=== PATIENT | female | born 1955 | race Caucasian/White ===

== ENCOUNTER 2019-03-21 14:18 | Observation (INO) | payer OTHER, SELFPAY ==
[2019-03-21] VITALS (14 sets, daily range): BP systolic 119–157; BP diastolic 62–91; PULSE 69–96; RESP 11–20; TEMP 36.2–37.3; O2SAT 93–100; BMI 27.4
--- NOTE | 2019-03-21 | PATH_ITS ---
[facility] Accession Number: [id number] . 01 Material submitted: . appendix - APPENDIX . 02 Diagnosis: Appendix, Laparoscopic Appendectomy: Acute appendicitis and serositis. MRV 03/24/2019 1025 Local . 02 Electronically signed: . Poppy Lawson MD, Pathologist NPI- [id number] . 01 Gross description: . Received in formalin, labeled appendix, is an intact appendix (length-5.6 cm, diameter-1.1 cm) with baldwin-mccracken smooth shiny serosa and attached mesoappendix (up to 2.1 cm in depth). The resection margin is received stapled. The lumen contains brown solid soft material. The wall is up to 0.3 cm thick. No nodules, masses or lesions are identified. The resection margin is inked black. Section code: (A1) resection margin en face and three additional in store marketing representative serial sections; (A2) one-half of the bivalved tip. ([id number]) /MRV 03/23/2019 1209 Local . 02 Pathologist provided ICD-10: K35.80 . 02 CPT . 817166 Specimen Comment: A duplicate report has been generated due to demographic updates. Performed at: 01 [facility] [address] [facility] [place], [place], [place] [id number] MD Yunior Portillo MD Phone: [phone] Performed at: 02 [facility] [address] [place], [place] [id number] MD Roula Miller MD Phone: [phone]
[2019-03-21 16:06] LABS: Add Manual Diff / Slide Review NO; Basophils Absolute Auto 100 /uL (0-100); Basophils Percent Auto 1.1 % (0-2); Eosinophils Absolute Auto 200 /uL (0-450); Hematocrit 41.1 % (36-46); Hemoglobin 13.8 g/dL (12.0-16.0); Lymphocytes Absolute Auto 2900 /uL (1100-4500); Lymphocytes Percent Auto 36.8 % (25-40); Mean Corpuscular HGB Conc 33.7 % (30-36); Mean Corpuscular Hemoglobin 30.1 PG (26-34); Mean Corpuscular Volume 89.5 fL (80-100); Monocytes Absolute Auto 500 /uL (0-900); Monocytes Percent Auto 6.5 % (3-14); Neutrophils Absolute Auto 4200 /uL (1500-7000); Neutrophils Percent Auto 53.6 % (50-75); Platelet Count 287 X10^3/uL (150-400); Red Blood Cell Count 4.59 X10^6/uL (4.0-5.2); White Blood Cell Count 7.8 X10^3/uL (4.5-11.0)
[2019-03-21 16:17] LABS: INR 1.1 (0.9-1.3); Prothrombin Time 12.1 SECONDS (10.1-12.7)
[2019-03-21 16:19] LABS: PTT Partial Thromboplastin Tim 35 SECONDS (26.4-36.2)
[2019-03-21 16:21] LABS: Alanine Aminotransferase 36 IU/L (9-52); Albumin 4.4 g/dL (3.5-5.0); Albumin Globulin Ratio 1.4 (1.0-2.8); Alkaline Phosphatase 101 U/L (38-126); Aspartate Aminotransferase 31 IU/L (14-36); BUN Creatinine Ratio 23.3 (6-22); Bilirubin Total 0.4 mg/dL (0.2-1.3); Blood Urea Nitrogen 14 mg/dL (7-17); Calcium 9.4 mg/dL (8.4-10.2); Carbon Dioxide 27 mmol/L (22-32); Chloride 103 mmol/L (98-107); Estimated Glomerular Filt Rate > 60.0 mL/min (>60); Globulin 3.2 g/dL (1.7-4.1); Glucose 87 mg/dL (80-110); HEMOLYSIS < 15 (0-50); Lipase 94 U/L (23-300); Potassium 3.6 mmol/L (3.4-5.1); Sodium 138 mmol/L (137-145); Total Protein 7.6 g/dL (6.3-8.2)
--- NOTE | 2019-03-21 16:26 | DI.CT.S_ITS ---
PROCEDURE: CT ABDOMEN PELVIS W CON INDICATIONS: rlq pain, nausea, fever TECHNIQUE: After the administration of intravenous contrast, 5 mm thick sections acquired from the diaphragm to the symphysis. 5 mm coronal and sagittal reformats were acquired. For radiation dose reduction, the following was used: automated exposure control, adjustment of mA and/or kV according to patient size. COMPARISON: None. FINDINGS: Image quality: Excellent. ABDOMEN: Lung bases: Lung bases are clear. Heart size is normal. Solid organs: Liver is normal in size and enhancement. Gallbladder is normal. Biliary system is non dilated. Pancreas enhances normally. Spleen is normal in size and enhancement. No adrenal nodules. Kidneys demonstrate normal size and enhancement, without hydronephrosis. Peritoneum and bowel: Appendix is distended measuring up to 12 mm in diameter and filled with fluid. There is a appendicolith at the base of the appendix. No free fluid or air. No fluid collections to suggest abscess. There is a moderate amount of stool in colon. Nodes and vessels: No retroperitoneal or mesenteric adenopathy by size criteria. Aorta and inferior vena cava are normal in size. Miscellaneous: No ventral hernias. PELVIS: Genitourinary: Bladder wall thickness is normal. Uterus and ovaries are absent. Miscellaneous: No inguinal hernias or adenopathy. Bones: No suspicious bony lesions. No vertebral body compression fractures. Degenerative disc and facet disease in lumbar spine. Metallic artifact from the left hip prosthesis partially obscure pelvis. IMPRESSION: 1. Acute uncomplicated appendicitis. The result was discussed with Basia Perez. Dictated by: Asya Collazo M.D. on 03/21/2019 at 16:54 Approved by: Asya Collazo M.D. on 03/21/2019 at 16:58
[2019-03-21] MEDS: SODIUM CHLORIDE 0.9% 1,000 ML 1000 ML IV (16:39)
[2019-03-21] MEDS: MORPHINE 4 MG/ML INJ IV ×2 (16:39→17:57)
[2019-03-21] MEDS: ONDANSETRON 4 MG/2 ML INJ IV (16:39)
--- NOTE | 2019-03-21 16:40 | ED.ABDPAIN ---
HPI - Abdominal Pain <DALE Dye - Last Filed: 03/21/19 18:18> General Chief Complaint: Abdominal Pain Stated Complaint: Pain on Lower Right Abd Time Seen by Provider: 03/21/19 15:51 Source: patient Mode of arrival: Ambulatory Limitations: no limitations History of Present Illness HPI narrative: The patient is a 64-year-old female with history of migraines nonsmoker who presents with a chief complaint of right lower quadrant pain. This started as periumbilical pain last night, and localized to right lower quadrant this morning. Also complains of chills and fevers yesterday along with nausea. NPO since 10:00 a.m. when she had some coffee and toast. Denies any chest pain, shortness of breath, dysuria urgency or frequency. Patient denies any abdominal surgery other than ovary removal. She is traveling, tried medical marijuana to feel better with no relief. Last bowel movement today. Related Data Home Medications Medication Instructions Recorded Confirmed celecoxib 200 mg PO DAILY 03/21/19 03/21/19 cholecalciferol (vitamin D3) 2,000 unit PO DAILY 03/21/19 03/21/19 [Vitamin D3] eszopiclone 2 mg PO BEDTIME PRN 03/21/19 03/21/19 magnesium oxide 400 mg PO QPM PRN 03/21/19 03/21/19 phentermine 37.5 mg PO DAILY PRN 03/21/19 03/21/19 zolmitriptan 2.5 mg TRANSLINGUAL PRN PRN MDD 10 03/21/19 03/21/19 mg Previous Rx's Medication Instructions Recorded acetaminophen [Tylenol] 650 mg PO QID PRN #30 cap 03/22/19 tramadol 50 mg PO Q6H PRN #30 tab 03/22/19 Allergies Allergy/AdvReac Type Severity Reaction Status Date / Time meperidine [From Demerol] Allergy Unknown Verified 03/21/19 14:30 Review of Systems <DALE Dye - Last Filed: 03/21/19 18:18> Review of Systems Narrative: GENERAL: Denies chills, fatigue, malaise, fever, sweats. HEENT: Denies sinus pain, ear pain, sore throat, difficulty swallowing, dizziness. RESPIRATORY: Denies dyspnea, cough, wheezing, hemoptysis, sputum. CARDIOVASCULAR: Denies chest pain, palpitations, orthopnea, edema, GASTROINTESTINAL: See HPI : Denies dysuria, frequency, incontinence, hematuria, urinary retention. MUSCULOSKELETAL: denies weakness, joint pain, or bony pain SKIN: Denies rash, skin lesions, or other NEUROLOGIC: Denies weakness, headache, numbness, change in speech, confusion, seizures, incoordination. PSYCHIATRIC: No concerning psychosocial issues. 12 point review of systems is negative except for those stated above PFSH <DALE Dye - Last Filed: 03/21/19 18:18> Medical History Closed left hip fracture (Acute ~12/26/18) H/O: hysterectomy (Acute) Migraine (Acute) Nerve damage of left foot (Acute) Social History Smoking Status: Never smoker Social History household members: spouse Smoking Status: Never smoker Exam <DALE Dye - Last Filed: 03/21/19 18:18> Narrative Exam Narrative: GENERAL: This is a well-nourished, well-developed patient, appears uncomfortable HEAD: Atraumatic. Normocephalic. No temporal or scalp tenderness. EYES: Pupils equal round and reactive. Extraocular motions intact. No scleral icterus. No injection or drainage. ENT: Nose without bleeding, purulent drainage or septal hematoma. Throat without erythema, tonsillar hypertrophy or exudate. Uvula midline. Airway patent. NECK: Trachea midline. No JVD or lymphadenopathy. Supple, nontender, no meningeal signs. CARDIOVASCULAR: Regular rate and rhythm without murmurs, gallops, or rubs. RESPIRATORY: Clear to auscultation. Breath sounds equal bilaterally. No wheezes, rales, or rhonchi. No cough. No increased respiratory effort. No accessory muscle use. No stridor. GASTROINTESTINAL: Abdomen soft,nondistended. No hepato-splenomegaly, or palpable masses. Active bowel sounds all 4 quadrants. Guarding noted right lower quadrant. Positive peritoneal sign. Positive rebound tenderness over McBurney's point. EXTREMITIES: No clubbing, cyanosis, or edema. No joint tenderness, effusion, or edema noted. BACK: Nontender without deformity or crepitance. No flank tenderness. NEURO: AOx3. SKIN: No rash or erythema. Initial Vital Signs Initial Vital Signs: Vital Signs Temperature 99.0 F 03/21/19 14:26 Pulse Rate 80 03/21/19 14:26 Respiratory Rate 18 03/21/19 14:26 Blood Pressure 125/83 03/21/19 14:26 Pulse Oximetry 99 03/21/19 14:26 <Kristi Montalvo DO - Last Filed: 03/24/19 07:13> Initial Vital Signs Initial Vital Signs: Vital Signs Temperature 99.0 F 03/21/19 14:26 Pulse Rate 80 03/21/19 14:26 Respiratory Rate 18 03/21/19 14:26 Blood Pressure 125/83 03/21/19 14:26 Pulse Oximetry 99 03/21/19 14:26 Course <JOSE ANTONIO Dye - Last Filed: 03/21/19 18:18> Orders Ordered: Discontinued Medications Acetaminophen (Tylenol) 650 mg PO Q6HR [facility] Last Admin: 03/22/19 05:39 Dose: 650 mg Documented by: Admin: 03/21/19 23:57 Dose: 650 mg Documented by: YEHUDA Acetaminophen (Tylenol) 325 mg PO NOW PRN PRN Reason: Pain, Mild (1-3) Hydrocodone Bitart/Acetaminophen (M[place]amey 5/325) 1 tab PO Q30MIN PRN PRN Reason: Mild or moderate pain Bupivacaine HCl (Sensorcaine 0.5% (Pf)) 30 ml INJ NOW ONE Stop: 03/21/19 20:22 Last Admin: 03/21/19 20:22 Dose: 30 ml Documented by: MAY Enoxaparin Sodium (Lovenox) 40 mg SUBCUT DAILY [facility] Last Admin: 03/22/19 08:41 Dose: 40 mg Documented by: LUNA Fentanyl (Sublimaze) 50 mcg IV Q5MIN PRN PRN Reason: Pain, Moderate (4-6) Hydromorphone HCl (Dilaudid) 0.25 mg IV Q5MIN PRN PRN Reason: Pain, Mild (1-3) Sodium Chloride (Normal Saline 0.9%) 1,000 mls @ 1,000 mls/hr IV BOLUS ONE Stop: 03/21/19 17:25 Last Infusion: 03/21/19 17:39 Dose: 0 mls/hr Documented by: Admin: 03/21/19 16:39 Dose: 1,000 mls/hr Documented by: FREDY Piperacillin/Tazobactam/Dextrose (Zosyn) 3.375 gm in 50 mls @ 100 mls/hr IV Q8H [facility] Last Infusion: 03/21/19 19:32 Dose: 100 mls/hr Documented by: Infusion: 03/21/19 18:05 Dose: 100 mls/hr Documented by: Admin: 03/21/19 17:56 Dose: 100 mls/hr Documented by: LACHELLE Lactated Ringer's (Lactated Ringers) 1,000 mls @ 42 mls/hr IV NOW ONE Stop: 03/22/19 18:05 Last Infusion: 03/21/19 21:01 Dose: 0 mls/hr Documented by: Admin: 03/21/19 18:18 Dose: 42 mls/hr Documented by: CEFERINO Lactated Ringer's (Lactated Ringers) 1,000 mls @ 42 mls/hr IV CONT SOFIA Last Admin: 03/21/19 22:01 Dose: Not Given Documented by: YOBANY Dextrose/Sodium Chloride (Dextrose 5%-0.9% Ns) 1,000 mls @ 75 mls/hr IV CONT SOFIA Last Infusion: 03/22/19 07:05 Dose: 0 mls/hr Documented by: Admin: 03/21/19 21:54 Dose: 75 mls/hr Documented by: YOBANY Influenza Virus Vaccine (Flu Vaccine) 0.5 ml IM .ONCE ONE Stop: 03/22/19 10:16 Last Admin: 03/22/19 10:46 Dose: 0.5 ml Documented by: LUNA Ketorolac Tromethamine (Toradol) 30 mg IV Q6HR SOFIA Stop: 03/26/19 19:18 Metoclopramide HCl (Reglan) 10 mg IV NOW PRN PRN Reason: Nausea And Vomiting Morphine Sulfate (Morphine) 4 mg IV NOW ONE Stop: 03/21/19 16:27 Last Admin: 03/21/19 16:39 Dose: 4 mg Documented by: FREDY Morphine Sulfate (Morphine) 4 mg IV NOW ONE Stop: 03/21/19 17:48 Last Admin: 03/21/19 17:57 Dose: 4 mg Documented by: LACHELLE Morphine Sulfate (Morphine) 2 mg IV Q4HR PRN PRN Reason: Pain, Moderate (4-6) Non-Formulary Medication (Eszopiclone) 2 mg PO BEDTIME PRN PRN Reason: Sleep Non-Formulary Medication (Zolmitriptan) 2.5 mg PO PRN PRN PRN Reason: Migraine Headache Ondansetron HCl (Zofran) 4 mg IV NOW ONE Stop: 03/21/19 16:27 Last Admin: 03/21/19 16:39 Dose: 4 mg Documented by: FREDY Ondansetron HCl (Zofran) 4 mg IV Q8HR PRN PRN Reason: Nausea And Vomiting Last Admin: 03/22/19 08:40 Dose: 4 mg Documented by: LUNA Ondansetron HCl (Zofran) 4 mg IV NOW PRN PRN Reason: Nausea And Vomiting Oxycodone HCl (Percolone) 5 mg PO Q4HR PRN PRN Reason: Pain, Moderate (4-6) Tramadol HCl (Ultram) 50 mg PO QID PRN PRN Reason: Pain, Moderate (4-6) Tramadol HCl (Ultram) 50 mg PO Q4H PRN PRN Reason: hip pain Last Admin: 03/22/19 08:41 Dose: 50 mg Documented by: Admin: 03/22/19 03:56 Dose: 50 mg Documented by: Admin: 03/21/19 22:13 Dose: 50 mg Documented by: YOBANY Vital Signs Vital signs: Vital Signs - 8 hr 03/21/19 14:26 03/21/19 16:15 Temperature 99.0 F Pulse Rate 80 69 Respiratory Rate 18 14 Blood Pressure 125/83 Blood Pressure [Right Arm] 119/66 Pulse Oximetry 99 100 <Kristi Montalvo DO - Last Filed: 03/24/19 07:13> Orders Ordered: Discontinued Medications Acetaminophen (Tylenol) 650 mg PO Q6HR [facility] Last Admin: 03/22/19 05:39 Dose: 650 mg Documented by: Admin: 03/21/19 23:57 Dose: 650 mg Documented by: YEHUDA Acetaminophen (Tylenol) 325 mg PO NOW PRN PRN Reason: Pain, Mild (1-3) Hydrocodone Bitart/Acetaminophen ([place]amey 5/325) 1 tab PO Q30MIN PRN PRN Reason: Mild or moderate pain Bupivacaine HCl (Sensorcaine 0.5% (Pf)) 30 ml INJ NOW ONE Stop: 03/21/19 20:22 Last Admin: 03/21/19 20:22 Dose: 30 ml Documented by: MAY Enoxaparin Sodium (Lovenox) 40 mg SUBCUT DAILY [facility] Last Admin: 03/22/19 08:41 Dose: 40 mg Documented by: LUNA Fentanyl (Sublimaze) 50 mcg IV Q5MIN PRN PRN Reason: Pain, Moderate (4-6) Hydromorphone HCl (Dilaudid) 0.25 mg IV Q5MIN PRN PRN Reason: Pain, Mild (1-3) Sodium Chloride (Normal Saline 0.9%) 1,000 mls @ 1,000 mls/hr IV BOLUS ONE Stop: 03/21/19 17:25 Last Infusion: 03/21/19 17:39 Dose: 0 mls/hr Documented by: Admin: 03/21/19 16:39 Dose: 1,000 mls/hr Documented by: FREDY Piperacillin/Tazobactam/Dextrose (Zosyn) 3.375 gm in 50 mls @ 100 mls/hr IV Q8H [facility] Last Infusion: 03/21/19 19:32 Dose: 100 mls/hr Documented by: Infusion: 03/21/19 18:05 Dose: 100 mls/hr Documented by: Admin: 03/21/19 17:56 Dose: 100 mls/hr Documented by: LACHELLE Lactated Ringer's (Lactated Ringers) 1,000 mls @ 42 mls/hr IV NOW ONE Stop: 03/22/19 18:05 Last Infusion: 03/21/19 21:01 Dose: 0 mls/hr Documented by: Admin: 03/21/19 18:18 Dose: 42 mls/hr Documented by: CEFERINO Lactated Ringer's (Lactated Ringers) 1,000 mls @ 42 mls/hr IV CONT [facility] Last Admin: 03/21/19 22:01 Dose: Not Given Documented by: YOBANY Dextrose/Sodium Chloride (Dextrose 5%-0.9% Ns) 1,000 mls @ 75 mls/hr IV CONT [facility] Last Infusion: 03/22/19 07:05 Dose: 0 mls/hr Documented by: Admin: 03/21/19 21:54 Dose: 75 mls/hr Documented by: YOBANY Influenza Virus Vaccine (Flu Vaccine) 0.5 ml IM .ONCE ONE Stop: 03/22/19 10:16 Last Admin: 03/22/19 10:46 Dose: 0.5 ml Documented by: LUNA Ketorolac Tromethamine (Toradol) 30 mg IV Q6HR [facility] Stop: 03/26/19 19:18 Metoclopramide HCl (Reglan) 10 mg IV NOW PRN PRN Reason: Nausea And Vomiting Morphine Sulfate (Morphine) 4 mg IV NOW ONE Stop: 03/21/19 16:27 Last Admin: 03/21/19 16:39 Dose: 4 mg Documented by: FREDY Morphine Sulfate (Morphine) 4 mg IV NOW ONE Stop: 03/21/19 17:48 Last Admin: 03/21/19 17:57 Dose: 4 mg Documented by: LACHELLE Morphine Sulfate (Morphine) 2 mg IV Q4HR PRN PRN Reason: Pain, Moderate (4-6) Non-Formulary Medication (Eszopiclone) 2 mg PO BEDTIME PRN PRN Reason: Sleep Non-Formulary Medication (Zolmitriptan) 2.5 mg PO PRN PRN PRN Reason: Migraine Headache Ondansetron HCl (Zofran) 4 mg IV NOW ONE Stop: 03/21/19 16:27 Last Admin: 03/21/19 16:39 Dose: 4 mg Documented by: FREDY Ondansetron HCl (Zofran) 4 mg IV Q8HR PRN PRN Reason: Nausea And Vomiting Last Admin: 03/22/19 08:40 Dose: 4 mg Documented by: LUNA Ondansetron HCl (Zofran) 4 mg IV NOW PRN PRN Reason: Nausea And Vomiting Oxycodone HCl (Percolone) 5 mg PO Q4HR PRN PRN Reason: Pain, Moderate (4-6) Tramadol HCl (Ultram) 50 mg PO QID PRN PRN Reason: Pain, Moderate (4-6) Tramadol HCl (Ultram) 50 mg PO Q4H PRN PRN Reason: hip pain Last Admin: 03/22/19 08:41 Dose: 50 mg Documented by: Admin: 03/22/19 03:56 Dose: 50 mg Documented by: Admin: 03/21/19 22:13 Dose: 50 mg Documented by: YOBANY Vital Signs Vital signs: Vital Signs - 8 hr 03/21/19 14:26 03/21/19 16:15 Temperature 99.0 F Pulse Rate 80 69 Respiratory Rate 18 14 Blood Pressure 125/83 Blood Pressure [Right Arm] 119/66 Pulse Oximetry 99 100 MDM - Abdominal Pain <DALE Dye - Last Filed: 03/21/19 18:18> Lab Data Result diagrams: 03/21/19 15:52 03/21/19 15:52 Labs: Lab Results 03/21/19 03/21/19 03/21/19 Range/Units 15:52 15:52 15:52 WBC 7.8 (4.5-11.0) X10^3/uL RBC 4.59 (4.0-5.2) X10^6/uL Hgb 13.8 (12.0-16.0) g/dL Hct 41.1 (36-46) % MCV 89.5 (80-100) fL MCH 30.1 (26-34) PG MCHC 33.7 (30-36) % RDW 14.0 (11.6-14.8) % Plt Count 287 (150-400) X10^3/uL Neut % (Auto) 53.6 (50-75) % Lymph % (Auto) 36.8 (25-40) % [place] % (Auto) 6.5 (3-14) % Eos % (Auto) 2.0 (2-4) % Baso % (Auto) 1.1 (0-2) % Neut # (Auto) 4200 (0954-7644) /uL Lymph # (Auto) 2900 (7261-3026) /uL [place] # (Auto) 500 (0-900) /uL Eos # (Auto) 200 (0-450) /uL Baso # (Auto) 100 (0-100) /uL PT 12.1 (10.1-12.7) SECONDS INR 1.1 (0.9-1.3) APTT 35 (26.4-36.2) SECONDS Sodium 138 (137-145) mmol/L Potassium 3.6 (3.4-5.1) mmol/L Chloride 103 (98-107) mmol/L Carbon Dioxide 27 (22-32) mmol/L BUN 14 (7-17) mg/dL Creatinine 0.60 (0.52-1.04) mg/dL Estimated GFR > 60.0 (>60) mL/min BUN/Creatinine Ratio 23.3 H (6-22) Glucose 87 (80-110) mg/dL Calcium 9.4 (8.4-10.2) mg/dL Total Bilirubin 0.4 (0.2-1.3) mg/dL AST 31 (14-36) IU/L ALT 36 (9-52) IU/L Alkaline Phosphatase 101 (38-126) U/L Total Protein 7.6 (6.3-8.2) g/dL Albumin 4.4 (3.5-5.0) g/dL Globulin 3.2 (1.7-4.1) g/dL Albumin/Globulin Ratio 1.4 (1.0-2.8) Lipase 94 (23-300) U/L Point of care testing: Urine Dip Bedside Urine Glucose Negative Bedside Urine Bilirubin - Negative Bedside Urine Ketone ++ 40 Urine Specific [place] 1.030 Bedside Urine Occult Blood - Negative Bedside Urine pH 5.0 Bedside Urine Protein - Negative Bedside Urine Urobilinogen - Negative Bedside Urine Nitrite - Negative Bedside Urine Leukocytes - Negative Esterase Imaging Data CT scan - abdomen: Radiologist's impression: [address] [address] [address] Scan Report Signed Patient: Leslie Arita KMR#: [id number] : 6Acct:[id number] Age/Sex: 64 / FDate of Service: 03/21/19 Loc: ED Accession Number: [id number] Procedure: CT abdomen pelvis w con Ordering Provider: Basia Perez STORAGE CONSULTANT- PROCEDURE: CT ABDOMEN PELVIS W CON INDICATIONS: rlq pain, nausea, fever TECHNIQUE: After the administration of intravenous contrast, 5 mm thick sections acquired from the diaphragm to the symphysis. 5 mm coronal and sagittal reformats were acquired. For radiation dose reduction, the following was used: automated exposure control, adjustment of mA and/or kV according to patient size. COMPARISON: None. FINDINGS: Image quality: Excellent. ABDOMEN: Lung bases: Lung bases are clear. Heart size is normal. Solid organs: Liver is normal in size and enhancement. Gallbladder is normal. Biliary system is non dilated. Pancreas enhances normally. Spleen is normal in size and enhancement. No adrenal nodules. Kidneys demonstrate normal size and enhancement, without hydronephrosis. Peritoneum and bowel: Appendix is distended measuring up to 12 mm in diameter and filled with fluid. There is a appendicolith at the base of the appendix. No free fluid or air. No fluid collections to suggest abscess. There is a moderate amount of stool in colon. Nodes and vessels: No retroperitoneal or mesenteric adenopathy by size criteria. Aorta and inferior vena cava are normal in size. Miscellaneous: No ventral hernias. PELVIS: Genitourinary: Bladder wall thickness is normal. Uterus and ovaries are absent. Miscellaneous: No inguinal hernias or adenopathy. Bones: No suspicious bony lesions. No vertebral body compression fractures. Degenerative disc and facet disease in lumbar spine. Metallic artifact from the left hip prosthesis partially obscure pelvis. IMPRESSION: 1. Acute uncomplicated appendicitis. The result was discussed with Basia Perez. Dictated by: Asya Collazo M.D. on 03/21/2019 at 16:54 Approved by: Asya Collazo M.D. on 03/21/2019 at 16:58 MDM Narrative Medical decision making narrative: The patient is a 64-year-old female who presents with a chief complaint of right lower quadrant pain. Started as periumbilical pain yesterday, localized right lower quadrant today. Also complains of chills, nausea, no vomiting. Her exam and history are very suspicious for appendicitis. The patient was given morphine and Zofran throughout her stay in the emergency department as well as IV fluids. She was NPO since 10:[address] abdomen and pelvis was obtained, which illustrated acute appendicitis. Thus I called and spoke with Dr. Carlin, surgeon on-call. Zosyn was started as per Dr. Carlin. Patient was transferred to OR staff at 6:10 p.m. <Kristi Montalvo, DO - Last Filed: 03/24/19 07:13> Lab Data Labs: Lab Results 03/21/19 03/21/19 03/21/19 Range/Units 15:52 15:52 15:52 WBC 7.8 (4.5-11.0) X10^3/uL RBC 4.59 (4.0-5.2) X10^6/uL Hgb 13.8 (12.0-16.0) g/dL Hct 41.1 (36-46) % MCV 89.5 (80-100) fL MCH 30.1 (26-34) PG MCHC 33.7 (30-36) % RDW 14.0 (11.6-14.8) % Plt Count 287 (150-400) X10^3/uL Neut % (Auto) 53.6 (50-75) % Lymph % (Auto) 36.8 (25-40) % [place] % (Auto) 6.5 (3-14) % Eos % (Auto) 2.0 (2-4) % Baso % (Auto) 1.1 (0-2) % Neut # (Auto) 4200 (9911-6987) /uL Lymph # (Auto) 2900 (8144-1216) /uL [place] # (Auto) 500 (0-900) /uL Eos # (Auto) 200 (0-450) /uL Baso # (Auto) 100 (0-100) /uL PT 12.1 (10.1-12.7) SECONDS INR 1.1 (0.9-1.3) APTT 35 (26.4-36.2) SECONDS Sodium 138 (137-145) mmol/L Potassium 3.6 (3.4-5.1) mmol/L Chloride 103 (98-107) mmol/L Carbon Dioxide 27 (22-32) mmol/L BUN 14 (7-17) mg/dL Creatinine 0.60 (0.52-1.04) mg/dL Estimated GFR > 60.0 (>60) mL/min BUN/Creatinine Ratio 23.3 H (6-22) Glucose 87 (80-110) mg/dL Calcium 9.4 (8.4-10.2) mg/dL Total Bilirubin 0.4 (0.2-1.3) mg/dL AST 31 (14-36) IU/L ALT 36 (9-52) IU/L Alkaline Phosphatase 101 (38-126) U/L Total Protein 7.6 (6.3-8.2) g/dL Albumin 4.4 (3.5-5.0) g/dL Globulin 3.2 (1.7-4.1) g/dL Albumin/Globulin Ratio 1.4 (1.0-2.8) Lipase 94 (23-300) U/L Point of care testing: Urine Dip Bedside Urine Glucose Negative Bedside Urine Bilirubin - Negative Bedside Urine Ketone ++ 40 Urine Specific [place] 1.030 Bedside Urine Occult Blood - Negative Bedside Urine pH 5.0 Bedside Urine Protein - Negative Bedside Urine Urobilinogen - Negative Bedside Urine Nitrite - Negative Bedside Urine Leukocytes - Negative Esterase Discharge Plan Departure Patient Disposition: Admitted as Observation Clinical Impression: Acute appendicitis Discharge Date/Time: 03/21/19 18:15 Instructions: DI for an Appendectomy, How to Prevent Falls, DI for Postoperative Pain, Tramadol, [facility]: Wound Care Referrals: Carl Carlin MD [Physician] - (Please follow up with your Primary Care Provider in 2 weeks after surgery.) Admit Date/Time: 03/21/19 17:48 Admit Provider: Carl Carlin
[2019-03-21] MEDS: PIPERACILLIN-TAZO 3.375 GM/50 ML FROZ.PIGGY IV (17:56)
--- NOTE | 2019-03-21 18:05 | P.HP_ITS ---
History of Present Illness History of Present Illness Date Patient Seen: 03/21/19 Time Patient Seen: 18:10 Chief complaint: Pain on Lower Right Abd Narrative: 64-year-old female with acute acute appendicitis. She had generalized abdominal pain yesterday became focused to the right lower quadrant today. Associated with nausea no vomiting or diarrhea. CT abdomen pelvis demonstrates acute uncomplicated appendicitis. She received Zosyn in the emergency room. No previous abdominal surgery. Non smoker, no major cardiopulmonary disease. Patient History Medical History Closed left hip fracture (Acute ~12/26/18) H/O: hysterectomy (Acute) Migraine (Acute) Nerve damage of left foot (Acute) Social History Smoking Status: Never smoker Family & Social History Safety & Behavioral: Feels Safe in Current Yes Environment Been Physically Hurt or No Threatened By a Person Tobacco & Substance use: Smoking Status Never smoker alcohol intake frequency 0-2 drinks per day Substance Use Type marijuana Meds Home Medications and Allergies Home Medications Medication Instructions Recorded Confirmed Type celecoxib 200 mg PO DAILY 03/21/19 03/21/19 History cholecalciferol (vitamin D3) 2,000 unit PO DAILY 03/21/19 03/21/19 History [Vitamin D3] eszopiclone 2 mg PO BEDTIME PRN 03/21/19 03/21/19 History magnesium oxide 400 mg PO QPM PRN 03/21/19 03/21/19 History phentermine 37.5 mg PO DAILY PRN 03/21/19 03/21/19 History tramadol 50 - 100 mg PO Q4H PRN 03/21/19 03/21/19 History zolmitriptan 2.5 mg TRANSLINGUAL PRN PRN MDD 10 03/21/19 03/21/19 History mg Allergies Allergy/AdvReac Type Severity Reaction Status Date / Time meperidine [From Demerol] Allergy Unknown Verified 03/21/19 14:30 Review of Systems Review of Systems ROS Unobtainable: All systems reviewed & are unremarkable except as noted in HPI and below Exam Vital Signs (past 8 hours): - 03/21/19 14:26 03/21/19 16:15 Temperature 99.0 F Pulse Rate 80 69 Respiratory Rate 18 14 Blood Pressure 125/83 Blood Pressure [Right Arm] 119/66 Pulse Oximetry 99 100 Oxygen Delivery Method Room Air Narrative Exam Narrative: General-adult female no acute distress, well nourished HEENT-moist mucous membranes, no scleral icterus Neck-supple with full range of motion, no lymphadenopathy Chest- no labored respirations, clear to auscultation bilaterally Cardiac-regular rate and rhythm Abdomen-soft, tender to palpation RLQ no peritonitis, non distended Extremities-no edema, warm well perfused Neurological-alert and oriented x 3. No focal deficits Skin-normal temperature and turgor, no rashes or ulcers Objective Labs Result Diagrams: 03/21/19 15:52 03/21/19 15:52 Labs: Laboratory Results - last 24 hr 03/21/19 03/21/19 03/21/19 15:52 15:52 15:52 WBC 7.8 RBC 4.59 Hgb 13.8 Hct 41.1 MCV 89.5 MCH 30.1 MCHC 33.7 RDW 14.0 Plt Count 287 Neut % (Auto) 53.6 Lymph % (Auto) 36.8 [place] % (Auto) 6.5 Eos % (Auto) 2.0 Baso % (Auto) 1.1 Neut # (Auto) 4200 Lymph # (Auto) 2900 [place] # (Auto) 500 Eos # (Auto) 200 Baso # (Auto) 100 PT 12.1 INR 1.1 APTT 35 Sodium 138 Potassium 3.6 Chloride 103 Carbon Dioxide 27 BUN 14 Creatinine 0.60 Estimated GFR > 60.0 BUN/Creatinine Ratio 23.3 H Glucose 87 Calcium 9.4 Total Bilirubin 0.4 AST 31 ALT 36 Alkaline Phosphatase 101 Total Protein 7.6 Albumin 4.4 Globulin 3.2 Albumin/Globulin Ratio 1.4 Lipase 94 Assessment & Plan Assessment and plan (1) Acute appendicitis: Current visit: Yes Status: Acute Assessment & Plan narrative: 64-year-old female with 1 day of acute appen dicitis. Focal right lower quadrant pain no leukocytosis CT reviewed demonstrates dilated appendix with fecalith no abscess or free fluid. Laparoscopic appendectomy is indicated. We discussed the risks of the operation including bleeding infection need for further procedure operation conversion o pen. Her questions have been answered and she is in agreement with this plan. NPO/IVF Zosyn Observation
[2019-03-21] MEDS: LACTATED RINGERS 1,000 ML 42 ML IV (18:18)
--- NOTE | 2019-03-21 20:00 | SUR.OPER ---
Supine on padded OR bed, head on pillow, arm padded and tucked at side, legs uncrossed, safety belt at thigh, tape over blanket over lower legs .
[2019-03-21] MEDS: BUPIVACAINE 0.5% (PF) VIAL 30 ML INJ (20:22)
--- NOTE | 2019-03-21 20:41 | PM.OP.1 ---
Operative Date/Time/Diagnoses Date of procedure: 03/21/19 Time of procedure: 20:41 Pre-op diagnosis: Acute appendicitis Post-op diagnosis: same Procedure & Clinicians Procedure: Laparoscopic appendectomy Same procedure as scheduled: Yes Indications: 64-year-old female presented with 1 day of acute appendicitis. A right lower quadrant pain CT abdomen pelvis demonstrating a dilated appendix without abscess or free fluid. Surgeon: Carl Carlin Anesthesia Type: General Operative Notes Findings: Acute non perforated appendicitis Specimen(s): other (Appendix) Estimated Blood Loss (mL): 10 Procedure in detail: Patient was brought to the operating room placed supine on the table. Bilateral lower extremity compression devices were applied. They were induced and intubated with an endotracheal tube. They received 3.375 g of Zosyn prior to skin incision. They were prepped and draped in sterile fashion. Time-out was performed to ensure the correct patient procedure necessary equipment within the operating room. The skin was infiltrated with 0.25% bupivacaine. A infraumbilical incision was made the umbilical stalk was grasped and elevated and incision was made and the abdomen was entered atraumatically. A 12 mm balloon trocar was then placed into the incision and pneumoperitoneum was established. The scope was then inspected abdomen inspected and there was no evidence of injury upon entry. Two 5 mm working ports were then placed supra pubic and in the left lower quadrant. The small bowel was then swept to the upper aspect of the abdomen. The appendix was retrocecal and the cecum was mobilized from its lateral attachements along the white line of [place]. The tenie were followed to the base of the cecum where the appendix was identified. The appendix was acutely inflamed but not perforated or with abscess. The appendix was grasped and a window within the mesentery was made. The appendix was then transected from the cecum using the Endo GI stapler with a blue load. Next the mesentery to the appendix was taken with the stapler using the vascular staple load. The specimen was removed using the Endo-Catch bag. The abdomen was irrigated and hemostasis was checked. The ports were then removed under direct visualization. The umbilical fascial incision was closed with 0 Vicryl in a figure-eight fashion. The skin wounds were irrigated and closed with Monocryl followed by the application of Dermabond. Sponge instrument count at the end of the operation was correct. The patient tolerated procedure well was extubated and transferred to the postoperative care unit in stable condition y Complications: none Post-operative Condition: stable Disposition: observation
--- NOTE | 2019-03-21 20:49 | SUR.PHASEI ---
Late note: pt picked up for surgery from ER, antibiotic started, then stopped, then restarted prior to surgery.
--- NOTE | 2019-03-21 21:01 | SUR.PHASEI ---
Report attempted, RN unavailable, to call back.
--- NOTE | 2019-03-21 21:25 | SUR.PHASEI ---
Pt transfered up to room 219, left with AC RN and DOG BOARDER and left in stable condition.
[2019-03-21] MEDS: DEXTROSE 5%-0.9% NS 1,000 ML 75 ML IV (21:54)
[2019-03-21] MEDS: TRAMADOL 50 MG TABLET PO (22:13)
[2019-03-21] MEDS: ACETAMINOPHEN 325 MG TABLET 650 MG PO (23:57)
[2019-03-22 00:13] VITALS: BP 144/73; PULSE 87; RESP 16; TEMP 36.9; O2SAT 95
--- NOTE | 2019-03-22 01:00 | PC.NURSE ---
Addendum entered by Kristen Mukherjee R.N. 03/22/19 06:30: Patient sat was 97% once back on oxygen at 2L/min so O2 decreased to 1L/min and will continue to titrate until off. Addendum entered by Kristen Mukherjee R.N. 03/22/19 04:26: Clarification: patient states she does not use oxygen routinely at home, just routinely after surgery. RA sat 91% so back on oxygen at this time. Addendum entered by Kristen Mukherjee R.N. 03/22/19 03:59: Up to bathroom and voided 300cc; denies dysuria, frequency or urgency. States abdominal pain now at 4/10 so medicated with Tramadol after having crackers to minimize stomach upset. Original Note: 0010 Patient is alert and oriented. Breath sounds CTA with oxygen at 2L/min per NC with sat of 95% (reports she uses oxygen routinely at night when at home). HRR. BP elevated at 144/73. Denies nausea. BT hypoactive and patient denies flatus. Has not urinated as yet since return from surgery. Is able to turn herself. Lap sites x 3 to abdomen with steri strip type dressings CDI. Abdomen is soft but tender. Does complain of 4/10 abdominal pain and 6/10 left groin pain (had recent hip fx repair with residual groin pain, left LE numbness and foot drop). Medicated with schedule Tylenol as recently had Tramadol; ice packs applied to groin for comfort. Fall risk score is high and bed alarm is activated. Wearing bilateral SCD's.
[2019-03-22] MEDS: TRAMADOL 50 MG TABLET PO ×2 (03:56→08:41)
[2019-03-22 03:57] VITALS: BP 133/58; PULSE 70; RESP 17; TEMP 37; O2SAT 91
[2019-03-22 05:00] VITALS: O2SAT 97
[2019-03-22] MEDS: ACETAMINOPHEN 325 MG TABLET 650 MG PO (05:39)
[2019-03-22 08:00] VITALS: BP 115/56; PULSE 87; RESP 15; TEMP 37.3; O2SAT 97
[2019-03-22] MEDS: ONDANSETRON 4 MG/2 ML INJ IV (08:40)
[2019-03-22] MEDS: ENOXAPARIN 40 MG/0.4 ML SYRINGE SUBCUT (08:41)
[2019-03-22] MEDS: INFLUENZA VACCINE 0.5 ML SYRINGE IM (10:46)
--- NOTE | 2019-03-22 11:03 | PC.NURSE ---
Day Shift- Pt A&OX4, able to make needs known, Up with SBA using cane to BR and stood at sink. Pain to abd 4/10 cramping. PRN Tramadol given at 0840 with good effect, pt requested prn zofran for nausea. Lap sites X3 to abd steri-strips CDI. Educated on splinting, preventing constipation. Discharge summary packet reviewed with pt, pt will follow up with her PCP in [place] in 2 weeks as pt is driving home to [place] with her on Thursday. Prescription for Tramadol given and pt stated she will have filled at [facility]. No other voiced concerns. Flu vaccine given prior to discharge per pt request. pt left unit with all belongings and in no distress at 1055 via wheelchair with [employer]CH [employer] WORKER escort. Pt's waiting at ED entrance to drive pt home.
--- NOTE | 2019-03-22 12:11 | P.DS_ITS ---
History of Present Illness History of Present Illness Chief complaint: Pain on Lower Right Abd Narrative: 64-year-old female with acute acute appendicitis. She had generalized abdominal pain yesterday became focused to the right lower quadrant today. Associated with nausea no vomiting or diarrhea. CT abdomen p darron demonstrates acute uncomplicated appendicitis. She received Zosyn in the emergency room. No previous abdominal surgery. Non smoker, no major cardiopulmonary disease. Discharge Providers Provider Date of admission: 03/21/19 17:48 Discharge Date: 03/22/19 Discharge provider: Carl Carlin MD Summary Hospital Course Discharge Diagnosis: acute appendicitis Hospital Course: 64-year-old female presented to the hospital acute appendicitis. She underwent a laparoscopic appendectomy that demonstrated acute appendicitis without perforation or abscess. Postoperatively the patient did well without issue. At time of discharge her pain is controlled and tolerating regular diet ambulatory without fever. Status at Discharge Cognitive/behavioral status at discharge: oriented Functional status at discharge: independent ambulation Overall status at discharge: patient is back to baseline Time Spent with Patient Time spent: Less than 30 minutes Exam Vital Signs (past 8 hours): - 03/22/19 05:00 03/22/19 08:00 Temperature 99.2 F Pulse Rate 87 Respiratory Rate 15 Blood Pressure 115/56 L Pulse Oximetry 97 97 Oxygen Delivery Method Room Air Oxygen Flow Rate 0 Objective Labs Result Diagrams: 03/21/19 15:52 03/21/19 15:52 Labs: Laboratory Results - last 24 hr 03/21/19 03/21/19 03/21/19 15:52 15:52 15:52 WBC 7.8 RBC 4.59 Hgb 13.8 Hct 41.1 MCV 89.5 MCH 30.1 MCHC 33.7 RDW 14.0 Plt Count 287 Neut % (Auto) 53.6 Lymph % (Auto) 36.8 [place] % (Auto) 6.5 Eos % (Auto) 2.0 Baso % (Auto) 1.1 Neut # (Auto) 4200 Lymph # (Auto) 2900 [place] # (Auto) 500 Eos # (Auto) 200 Baso # (Auto) 100 PT 12.1 INR 1.1 APTT 35 Sodium 138 Potassium 3.6 Chloride 103 Carbon Dioxide 27 BUN 14 Creatinine 0.60 Estimated GFR > 60.0 BUN/Creatinine Ratio 23.3 H Glucose 87 Calcium 9.4 Total Bilirubin 0.4 AST 31 ALT 36 Alkaline Phosphatase 101 Total Protein 7.6 Albumin 4.4 Globulin 3.2 Albumin/Globulin Ratio 1.4 Lipase 94 Discharge Plan Discharge Plan Patient Disposition: Home Discharge Med Rec/Prescriptions Prescriptions: New tramadol 50 mg tablet 50 mg PO Q6H PRN (Reason: pain) Qty: 30 RF: 0 acetaminophen [Tylenol] 325 mg capsule 650 mg PO QID PRN (Reason: pain) Qty: 30 RF: 0 Continued celecoxib 200 mg capsule 200 mg PO DAILY RF: 0 phentermine 37.5 mg tablet 37.5 mg PO DAILY PRN (Reason: as directed) RF: 0 zolmitriptan 2.5 mg tablet,disintegrating 2.5 mg translingual PRN MDD 10 mg PRN (Reason: Migraine Headache) RF: 0 eszopiclone 2 mg tablet 2 mg PO BEDTIME PRN (Reason: Sleep) RF: 0 cholecalciferol (vitamin D3) [Vitamin D3] 2,000 unit Capsule 2,000 unit PO DAILY RF: 0 magnesium oxide 400 mg magnesium Tablet 400 mg PO QPM PRN (Reason: migraine prevention) RF: 0 Discontinued tramadol 50 mg tablet 50 - 100 mg PO Q4H PRN (Reason: hip pain) RF: 0 Follow up/Referrals: Carl Carlin MD [Physician] - (Please follow up with your Primary Care Provider in 2 weeks after surgery.) Provider Discharge Instructions Diet: Diet as Tolerated Activity: No lifting >20 lbs x 4 weeks Skin/Wound/Dressing Care Report to your healthcare provider any signs of infection, such as:: chills, f ever, increased pain, unusual drainage and unusual redness Visit Report/Discharge Packet Instructions: DI for an Appendectomy, How to Prevent Falls, DI for Postoperative Pain, Tramadol, [facility]: Wound Care Discharge Data Attending Provider: Carl Carlin Admit Date/Time: 03/21/19 17:48 Discharges patient from system. Discharge Date/Time: 03/22/19 10:55
--- NOTE | 2019-03-22 14:44 | CM.DANOTE ---
DCP: assessment: note: case received and discussed in Team Rounds. Pt admitted last evening with pain in right lower abdomen. Dx with acute appendicitis and was taken to surgery with Dr. Carlin for a laproscopic appendectomy last night. Payer: commercial Insurance. Pt was cleared this morning for d/c and she did leave with her this morning. Plan was for both to drive back to their home in [place] this Thursday and follow up with her PCP in 2 weeks. No concerns re the d/c were noted by the care team members.
== END 2019-03-22 10:55 | disposition home or self-care (01) ==
LOC: ED 17:34 → AC 17:49
PROVIDERS: Emergency Medicine; Admitting Provider Surgery; Emergency Provider Nurse Practitioner Family; Visit Provider Surgery
PROC: 0DTJ4ZZ Resection of Appendix, Percutaneous Endoscopic Approach (ICD-10-PCS; CPT 44970; principal; 2019-03-21 19:00)
DX: K35.80 Unspecified acute appendicitis (principal); R10.31 Right lower quadrant pain; Z23 Encounter for immunization
CPT/HCPCS: 44970; 36415; 74177; 80053; 81003; 83690; 85025; 85610; 85730; 90471; 90656; 94760; 96361; 96365; 96366; 96372; 96375; 96376; 99219; 99283; 99284; G0378; J1100; J1650; J2270; J2405; J2543; J2704; J3010; Q2038

== ENCOUNTER → 2019-12-10 12:50 | Outpatient (ROUT) | payer OTHER, SELFPAY ==
[2019-03-21 21:41] VITALS: BMI 27.4
[2019-12-11 01:08] LABS: COVID19 Sendout Not Detected (Not Detect)
== END ==
PROVIDERS: Visit Provider Physician Assistant
DX: Z20.828 Contact with and (suspected) exposure to other viral communicable diseases (principal)
CPT/HCPCS: 87635

== ENCOUNTER → 2021-03-26 11:54 | Outpatient (CLI) | payer MEDICARE, SELFPAY ==
[2019-03-21 21:41] VITALS: BMI 27.4
[2021-03-26 13:59] LABS: Calcium 9.4 mg/dL (8.4-10.2); Estimated Glomerular Filt Rate > 60.0 mL/min (>60)
[2021-03-26 16:26] LABS: Vitamin D 25 Hydroxy (D3) 48.6 ng/mL (30.0-100.0)
== END ==
PROVIDERS: Referring Provider Internal Medicine Endocrinology, Diabetes & Metabolism; Visit Provider Internal Medicine Endocrinology, Diabetes & Metabolism
DX: M81.0 Age-related osteoporosis without current pathological fracture (principal)
CPT/HCPCS: 36415; 82306; 82310; 82565

== ENCOUNTER → 2022-08-04 12:42 | Outpatient (CLI) | payer MEDICARE, SELFPAY ==
[2019-03-21 21:41] VITALS: BMI 27.4
== END ==
PROVIDERS: Referring Provider Physician Assistant; Visit Provider Physician Assistant
DX: M81.0 Age-related osteoporosis without current pathological fracture (principal); Z78.0 Asymptomatic menopausal state; Z13.820 Encounter for screening for osteoporosis; Z79.83 Long term (current) use of bisphosphonates; Z90.710 Acquired absence of both cervix and uterus
CPT/HCPCS: 77080; 77081

== ENCOUNTER → 2022-10-08 13:21 | Outpatient (CLI) | payer MEDICARE, SELFPAY ==
[2019-03-21 21:41] VITALS: BMI 27.4
== END ==
PROVIDERS: PCP Physician Assistant; Visit Provider Obstetrics & Gynecology
DX: R32 Unspecified urinary incontinence (principal); R39.15 Urgency of urination
CPT/HCPCS: 87086

== ENCOUNTER → 2024-12-28 16:04 | Outpatient (CLI) | payer MEDICARE, SELFPAY ==
[2019-03-21 21:41] VITALS: BMI 27.4
[2024-12-28 16:59] LABS: Appearance Urine UA CLEAR; Bilirubin Urine UA NEGATIVE (NEGATIVE); Color Urine UA YELLOW; Glucose Urine UA NEGATIVE (Negative); Ketones Urine UA NEGATIVE (NEGATIVE); Leukocyte Esterase Urine UA NEGATIVE (NEGATIVE); Nitrite Urine UA NEGATIVE (Negative); Occult Blood Urine UA NEGATIVE (Negative); Protein Urine UA NEGATIVE (Negative); Specific Gravity Urine UA 1.020 (1.000-1.035); Urobilinogen Urine UA 0.2 E.U./dL (0.2); pH Urine UA 5.0 (4.5-8.0)
== END ==
PROVIDERS: PCP Physician Assistant; Visit Provider Obstetrics & Gynecology Gynecology
DX: N81.89 Other female genital prolapse (principal)
CPT/HCPCS: 81001